=== PATIENT | female | born 1945 | race Caucasian/White ===

== ENCOUNTER 2025-03-12 20:35 | Inpatient (IN) | payer OTHER, SELFPAY ==
[2025-03-12] VITALS (8 sets, daily range): BP systolic 97–127; BP diastolic 61–89; BMI 32.9; BMI 32.5
[2025-03-12 11:57] LABS: Hematocrit 42.0 % (37.0-47.0); Hemoglobin 13.4 g/dL (12.0-16.0); Mean Corp Hgb Conc. 31.9 g/dL (33.0-37.0); Mean Corpuscular Volume 94.4 fL (81.0-99.0); Nucleated Red Blood Cells % 0 %; Platelet Count 240 10^3/uL (130-400); Red Cell Dist. Width 12.7 % (11.5-14.5)
[2025-03-12 12:19] LABS: ALT (SGPT) 23 U/L (0-35); AST (SGOT) 29 U/L (14-36); Albumin 4.7 g/dl (3.5-5.0); Alkaline Phosphatase 98 U/L (38-126); Blood Urea Nitrogen 18 mg/dl (7-17); Calcium 10.8 mg/dl (8.4-10.2); Carbon Dioxide 29 mmol/L (22-30); Chloride 102 mmol/L (98-107); Glucose 144 mg/dl (70-99); Lipase 73 U/L (23-300); Potassium 4.3 mmol/L (3.5-5.1); Sodium 139 mmol/L (135-145); Total Protein 7.4 g/dl (6.3-8.2); eGFR > 60.00
--- NOTE | 2025-03-12 13:47 | ED.GENMED ---
History of Present Illness
<Alpa Guzman MD - Last Filed: 03/12/25 15:29>
General
Chief Complaint: Abdominal Pain
Time Seen by Provider: 03/12/25 13:39
History of Present Illness
History of Present Illness:
Patient is a 80-year-old woman with history of colon cancer status post resection/chemotherapy currently in remission, hypertension, hyperlipidemia presenting to the emergency department with abdominal pain. Patient states she been having
intermittent abdominal pain. It is epigastric and sometimes periumbilical. It is associated with nausea. It is not exertional. She does not become diaphoretic. No urinary symptoms. No changes in her bowel movement. Her last colonoscopy was
last year. She has had normal PET scans this year. No chest pain. No difficulty breathing. No vomiting. She did talk to her surgeons who told her to come to the emergency department for further evaluation.
Phy Exam
<Alpa Guzman MD - Last Filed: 03/12/25 15:29>
Physical Exam
Physical Exam:
GENERAL: in no acute distress
HEENT: normocephalic, extraocular movements intact, moist oral mucosa
NECK: normal inspection
RESPIRATORY: no respiratory distress, clear to auscultation bilaterally
CARDIOVASCULAR: regular rate and rhythm
ABDOMEN/: soft, non-distended, periumbilical tenderness to palpation, no rebound or guarding
EXTREMITIES: non-tender, no edema/swelling
NEUROLOGIC: awake and alert, moves all extremities
SKIN: warm
Course
<Alpa Guzman MD - Last Filed: 03/12/25 15:29>
Orders/Labs/Results
Orders:
Orders
03/12/25 11:40
Complete Blood Count/With Diff Urgent
Comprehensive Metabolic Panel Urgent
Lipase Urgent
03/12/25 13:40
Electrocardiogram (*1) Urgent
Reason for Study: Abdominal Pain
CT Abd/pelvis W Iv Cont Urgent
Comment:
Reason For Exam: abd pain
EKG- Treatment ONCE
03/12/25 13:47
Famotidine [Pepcid] 40 mg PO NOW STA
Ondansetron Orally Disint [Zofran Odt (Orally Disintegrating)] 4 mg PO NOW STA
Abnormal Lab Results
03/12/25
11:40
MCHC 31.9 L g/dL
(33.0-37.0)
BUN 18 H mg/dl
(7-17)
Glucose 144 H mg/dl
(70-99)
Calcium 10.8 H mg/dl
(8.4-10.2)
03/12/25 11:40
03/12/25 11:40
Vital Signs
Initial and Last Documented VS:
Initial Vital Signs
Temp Pulse Resp BP Pulse Ox
98.2 F 79 16 127/79 98
03/12/25 11:28 03/12/25 11:28 03/12/25 11:28 03/12/25 11:28 03/12/25 11:28
Last Documented Vital Signs
Temp Pulse Resp BP Pulse Ox
98.2 F 80 22 121/66 96
03/12/25 11:28 03/12/25 17:00 03/12/25 17:00 03/12/25 17:00 03/12/25 16:30
<Weston Landis, DO - Last Filed: 03/12/25 18:27>
Orders/Labs/Results
Orders:
Orders
03/12/25 11:40
Complete Blood Count/With Diff Urgent
Comprehensive Metabolic Panel Urgent
Lipase Urgent
03/12/25 13:40
Electrocardiogram (*1) Urgent
Reason for Study: Abdominal Pain
CT Abd/pelvis W Iv Cont Urgent
Comment:
Reason For Exam: abd pain
EKG- Treatment ONCE
03/12/25 13:47
Famotidine [Pepcid] 40 mg PO NOW STA
Ondansetron Orally Disint [Zofran Odt (Orally Disintegrating)] 4 mg PO NOW STA
Abnormal Lab Results
03/12/25
11:40
MCHC 31.9 L g/dL
(33.0-37.0)
BUN 18 H mg/dl
(7-17)
Glucose 144 H mg/dl
(70-99)
Calcium 10.8 H mg/dl
(8.4-10.2)
03/12/25 11:40
03/12/25 11:40
Vital Signs
Initial and Last Documented VS:
Initial Vital Signs
Temp Pulse Resp BP Pulse Ox
98.2 F 79 16 127/79 98
03/12/25 11:28 03/12/25 11:28 03/12/25 11:28 03/12/25 11:28 03/12/25 11:28
Last Documented Vital Signs
Temp Pulse Resp BP Pulse Ox
98.2 F 80 22 121/66 96
03/12/25 11:28 03/12/25 17:00 03/12/25 17:00 03/12/25 17:00 03/12/25 16:30
<Alpa Guzman MD - Last Filed: 03/12/25 15:29>
MDM/Problems Addressed
Differential Diagnosis Includes:
Patient is a 80-year-old woman with history of colon cancer status post resection/chemotherapy, hiatal hernia presenting to the emergency department intermittent abdominal pain as well as nausea. On arrival vitals unremarkable exam does show
tenderness to palpation to the periumbilical region. Concern for new malignancy versus atypical ACS versus worsening hernia or reflux. Will check blood work EKG CT scan. Will give Zofran and Pepcid.
<Alpa Guzman MD - Last Filed: 03/12/25 15:29>
*Pulse Oximetry
SaO2: 98
Oxygen Mode of Delivery: Room air
<Weston Landis DO - Last Filed: 03/12/25 18:27>
*Pulse Oximetry
Patient hypoxic: no
*Critical Care Note
Total Time (30-74mins, 75-104mins- exclusive of procedures): Not Applicable
<Alpa Guzman MD - Last Filed: 03/12/25 15:29>
Update Note
Update Note:
EKG per my interpretation no obvious ST changes. Patient does feel much better after the Pepcid. We are pending CT scan at this time. Patient signed out pending CT scan results
<Weston Landis DO - Last Filed: 03/12/25 18:27>
Update Note
Update Note:
EKG per my interpretation no obvious ST changes. Patient does feel much better after the Pepcid. We are pending CT scan at this time. Patient signed out pending CT scan results
1823 pt received in s/o. CT shows suspicion for partial SBO. pain has returned. no vomiting. In light of her surgery history and her persistent symptoms will admit/obs. IV fluids ordered. Continue to monitor.
ED Attending Note
<Alpa Guzman MD - Last Filed: 03/12/25 15:29>
-
Portions of this chart may have been created with voice recognition software.� Occasional wrong word or��sound alike� substitutions may have occurred due to the inherent limitations of voice recognition software.
Discharge Plan
Departure
Patient Disposition: Admit
Date of Disposition: 03/12/25
Time of Disposition: 18:24
Admit to: Med/Surg
Presentation/result/management discussed w/ accepting MD/DO: Hospitalist
Discharge Problem:
Hiatal hernia, Acid reflux, Partial small bowel obstruction
Instructions: Acid Reflux and GERD in Adults (DC)
Referrals:
Mina Escalona CRNP [Family Provider, Family Practice]
Activity Restrictions/Additional Instructions:
You were seen in the Emergency Department today for abdominal pain. While you were here we performed blood work, which was reassuring. Please make sure you take Pepcid once a day to help with your symptoms.
We would like for you to follow up with your primary care physician for further evaluation. If you experience fever, worsening of your symptoms, or develop any other new or concerning symptoms, please return to the Emergency Department immediately.
Please see the attached sheet for additional information.
Interventions
Interventions:
*Risk Screen - Suicide Last Done: 03/12/25 11:28
*General Assessment Last Done: 03/12/25 11:28
*Neglect/Abuse Screening Last Done: 03/12/25 11:28
*ED COVID-19 Vaccine History Last Done: 03/12/25 14:12
*ED Influenza Vaccine History Last Done: 03/12/25 14:12
UO-Oyveqb-Lxinzazlzd Assessment Last Done: 03/12/25 17:16
Discharge Date and Time
Print Language: TAJIK
[2025-03-12] MEDS: ZOFRAN ODT (ORALLY DISINTEGRATING) 4 MG PO (13:56)
[2025-03-12] MEDS: PEPCID 40 MG PO (13:56)
[2025-03-12] MEDS: D5/0.45%NACL 500 IV (19:05)
--- NOTE | 2025-03-12 20:03 | HPS.HSE ---
Family Physician
-
Family Physician: LAKESHIA Fischer
Chief Complaint
-
Abdominal pain
History of Present Illness
80-year-old woman with history of:
colon cancer status post resection/chemotherapy currently in remission,
essential hypertension,
hyperlipidemia
presents to the emergency department with abdominal pain. She states she has been having intermittent abdominal pain, epigastric and sometimes periumbilical, associated with nausea, not exertional. She does not become diaphoretic. No urinary
symptoms. No changes in her bowel movement. Her last colonoscopy was last year. She has had normal PET scans this year. No chest pain. No difficulty breathing. No vomiting. She did talk to her surgeons who told her to come to the emergency
department for further evaluation. In the ER, the CT showed:
At least three possible foreign small low-attenuation hepatic lesions, difficult to differentiate malignancy such as metastatic disease versus benign etiology such as hemangiomas on the basis of this study.
Prior colonic surgery with anastomosis seen in the left anterior lower abdomen, presumably ileocolic anastomosis with foreshortening large and small bowel and mildly dilated small bowel with air-fluid levels SUGGESTING PARTIAL OBSTRUCTION, POSSIBLY
AT SITE OF ANASTOMOSIS. No findings to confirm intestinal pneumatosis.
Distal colonic diverticulosis.
Small volume ascites.
Small right renal cyst.
Large hiatal/diaphragmatic stomach with majority of stomach seen in the medial right lower chest.
Medical History
Past Medical History
Past Medical History: Reports Other
Additional Past Medical History:
colon cancer status post resection/chemotherapy currently in remission,
essential hypertension,
hyperlipidemia
GERD
Past Surgical History: Reports Other
Additional Past Surgical History:
See above
Social History
Tobacco: Non-smoker
Alcohol: None
Drug: None
Personal:
Living: With Family
Employment: Retired
Family History
Family History: Not pertinent
Allergies / Home Medications
Allergies reflects when Allergies were last updated in [facility].
Home Medications with original date entered in [facility]
Allergy/Medication List:
Allergies
Allergy/AdvReac Type Severity Reaction Status Date / Time
ibuprofen (From Advil) Allergy Hives Verified 03/12/25 11:34
Home Medications
Lactobac no.2-Bifidobac no.1-S. thermo 112.5 billion cell capsule (Visbiome) 1 cap PO DAILY Supplement 03/12/25
acetaminophen 325 mg tablet (Tylenol) 650 mg PO Q6HPRN PRN mild pain 03/12/25
apixaban 5 mg tablet (Eliquis) 5 mg PO BID Blood Clot Prevention/Tx 03/12/25
ascorbic acid (vitamin C) 500 mg tablet (Vitamin C) 500 mg PO DAILY Supplement 03/12/25
atorvastatin 20 mg tablet (Lipitor) 20 mg PO QPM gerd 03/12/25
cholecalciferol (vitamin D3) 25 mcg (1,000 unit) tablet (Vitamin D3) 25 mcg PO DAILY Supplement 03/12/25
cranberry fruit 450 mg tablet (cranberry) 450 mg PO DAILY Supplement 03/12/25
cyanocobalamin (vitamin B-12) 1,000 mcg tablet 1,000 mcg PO DAILY Supplement 03/12/25
digoxin 125 mcg (0.125 mg) tablet 125 mcg PO DAILY Heart Disease/Condition 03/12/25
furosemide 20 mg tablet (Lasix) 20 mg PO QPM Fluid Retention/Swelling 03/12/25
furosemide 40 mg tablet (Lasix) 40 mg PO DAILY Fluid Retention/Swelling 03/12/25
losartan 100 mg tablet 100 mg PO DAILY Heart Disease/Condition 03/12/25
melatonin 5 mg tablet 5 mg PO HSPRN PRN sleep 03/12/25
metoprolol succinate 25 mg tablet,extended release 24 hr (Toprol XL) 25 mg PO BID Heart Disease/Condition 03/12/25
pantoprazole 40 mg tablet,delayed release (Protonix) 40 mg PO DAILY gerd 03/12/25
polyethylene glycol 3350 17 gram oral powder packet (Miralax) 8.5 g PO DAILYPRN PRN constipation 03/12/25
Review of Systems
-
History Source: Patient
A 12 point ROS was completed and negative except as noted: Yes
Physical Exam
Vital Signs
Vital Signs
Temp Pulse Resp BP Pulse Ox
98.2 F 80 12 116/61 94
03/12/25 11:28 03/12/25 19:45 03/12/25 19:45 03/12/25 19:01 03/12/25 19:45
Physical Exam
General: Well Developed, Well Nourished, No Apparent Distress, Comfortable, Conversant and Obese
HEENT: NormoCephalic, Nose Appears Normal and Ears Appear Normal
Respiratory: Clear
Cardiac: S1/S2, Regular Rhythm and Murmur
GI: Soft, Non Tender and Non Distended
Musculoskeletal: No Clubbing, No Cyanosis, Edema, Left Lower Extremity and Edema, Right Lower Extremity
Skin: Warm and Dry
Neuro: Awake, Alert, Oriented and AO x 3
Psych: Calm
Laboratory Results
-
03/12/25 11:40
03/12/25 11:40
Laboratory Results
Total Bilirubin 0.8 mg/dl (0.2-1.3) 03/12/25 11:40
AST 29 U/L (14-36) 03/12/25 11:40
ALT 23 U/L (0-35) 03/12/25 11:40
Alkaline Phosphatase 98 U/L (38-126) 03/12/25 11:40
Lipase 73 U/L (23-300) 03/12/25 11:40
Data Reviewed
-
Lab Data: Labs Reviewed by me
Impression/Plan
-
IMPRESSION:
80 woman with partial SBO, stable vitals, stable labs.
PLAN:
1. Partial SBO in setting of complex anatomy given prior surgery
NPO
IV saline
If symptoms do not resolve within 24-48 hours, surgical consult for further advice
2. Complex findings on CT
Outpatient follow up to go over imaging
Full code
VCD for DVTp
--- NOTE | 2025-03-12 22:50 | PTCARENOTE ---
Pt arrived to south @ 2250 from ED. Pt ambulated to bed w/o difficulty. Pt AOx3, VSS. Admission assessment complete. IVF initiated per order. Pt oriented to room, call beíntez within reach, bed locked and in lowest position. Care ongoing.
[2025-03-12] MEDS: NSS 1000 IV (23:24)
[2025-03-13 07:00] VITALS: BP 102/60
[2025-03-13 07:19] LABS: Hematocrit 37.0 % (37.0-47.0); Hemoglobin 11.7 g/dL (12.0-16.0); Mean Corp Hgb Conc. 31.6 g/dL (33.0-37.0); Mean Corpuscular Volume 95.6 fL (81.0-99.0); Platelet Count 182 10^3/uL (130-400); Red Cell Dist. Width 12.8 % (11.5-14.5)
[2025-03-13 07:32] LABS: Blood Urea Nitrogen 14 mg/dl (7-17); Calcium 10.0 mg/dl (8.4-10.2); Carbon Dioxide 27 mmol/L (22-30); Chloride 105 mmol/L (98-107); Estimated Creatinine Clearance 67 ml/min; Glucose 108 mg/dl (70-99); Potassium 3.9 mmol/L (3.5-5.1); Sodium 135 mmol/L (135-145); eGFR > 60.00
[2025-03-13] MEDS: NSS (PRESERVATIVE FREE) 10 ML IV (08:42)
[2025-03-13] MEDS: PROTONIX IV 40 MG IV (08:43)
--- NOTE | 2025-03-13 08:52 | W.PN.HOSP.TC ---
Today's Communication/Plan
-
Heparin Drip in lieu of Eliquis
Since patient normally takes Digoxin for A-Fib, monitor patient on telemetry given the circumstances
See plan
Assessment / Plan
Assessment / Plan
Physical Exam
General: Not in acute distress
HEENT: Normocephalic
Respiratory: Clear to Auscultation Bilaterally
Cardiac: S1/S2, Regular Rhythm and Murmur
GI: Soft, Non Tender and Non Distended. Positive bowel sounds.
Musculoskeletal: No Cyanosis, Edema, Left Lower Extremity and Edema, Right Lower Extremity
Skin: Warm and Dry
Neuro: Awake, Alert, Oriented and AO x 3
Psych: Calm
Assessment/Plan
80-year-old woman with history of:
colon cancer status post resection/chemotherapy currently in remission,
essential hypertension,
hyperlipidemia
presented to the emergency department with abdominal pain. She stated that she had been having intermittent abdominal pain, epigastric and sometimes periumbilical, associated with nausea, not exertional or associated with diaphoresis. She denied
having any urinary symptoms or any changes in her bowel movement. Her last colonoscopy was in 2023, according to her. She has had normal PET scans this year. She denied any chest pain or difficulty breathing. She denied any vomiting. She did talk to
her surgeons who told her to come to the emergency department for further evaluation. In the ER, the CT Abdomen/Pelvis showed (as per radiologist's report):
At least three possible foreign small low-attenuation hepatic lesions, difficult to differentiate malignancy such as metastatic disease versus benign etiology such as hemangiomas on the basis of this study. Are there prior outside studies for
comparison?
Prior colonic surgery with anastomosis seen in the left anterior lower abdomen, presumably ileocolic anastomosis with foreshortening large and small bowel and mildly dilated small bowel with air-fluid levels SUGGESTING PARTIAL OBSTRUCTION, POSSIBLY
AT SITE OF ANASTOMOSIS. No findings to confirm intestinal pneumatosis.
Distal colonic diverticulosis.
Small volume ascites.
Small right renal cyst.
Large hiatal/diaphragmatic stomach with majority of stomach seen in the medial right lower chest.
ADDENDED REPORT:
Following further reformatted views of the study just completed, small bowel obstruction may be multifocal and most prominent at the level of the right true pelvis coronal images 24-26, series 202.
#Partial SBO in setting of complex anatomy given prior surgery in setting of colon cancer
NPO except sips of clears and ice chips for now
IV fluids were given
Consulted general surgery
#Hepatic Lesions on CT
#History of colon cancer
-Oncology evaluation inpatient vs. outpatient
#Atrial Fibrillation
-Start Heparin Drip, to be given in lieu of patient's Eliquis for stroke prevention
-Have asked pharmacist to look into converting her home medications to intravenous especially the Digoxin
-Monitor on telemetry
#Bilateral Lower Extremity Edema
-Patient takes Lasix at home -- hold here due to soft blood pressures
-Patient denied having any history of CHF
Full code
Heparin Drip for DVT prophylaxis
Anticipated Discharge: 24 - 48 hours
Subjective/Interval History
-
Date of Service: March 13, 2025
Patient was seen and examined. She reported that her abdominal pain was better but still there. She denied nausea or vomiting.
Objective Data
-
Labs:
Laboratory Results
03/13/25
06:40
WBC 5.8
Hgb 11.7 L
Hct 37.0
Plt Count 182 D
Sodium 135
Potassium 3.9
Chloride 105
Carbon Dioxide 27
BUN 14
Creatinine 0.7
Glucose 108 H
Calcium 10.0
Vital Signs:
Vital Signs
Temp Pulse Resp BP Pulse Ox
98.5 F 96 16 102/60 95
03/13/25 07:00 03/13/25 07:00 03/13/25 07:00 03/13/25 07:00 03/13/25 07:00
I&O
03/12/25 03/13/25 03/14/25
06:59 06:59 05:59
Intake Total 600 / 600
Balance 600 / 600
[2025-03-13] MEDS: LASIX IV (08:58)
[2025-03-13] MEDS: NSS 1000 IV (13:28)
--- NOTE | 2025-03-13 14:52 | CON.GS ---
Addendum entered and electronically signed by Sage Rodarte MD 03/13/25 15:28:
Patient is a 80 yo F with a PMH of GERD, HTN, HLD, A-fib (on Eliquis, LD 03/12), s/p open cholecystectomy, and colon cancer s/p robotic RIGHT hemicolectomy at [facility] c/b leak s/p exploratory laparotomy with resection at [facility] in the
winter 2023. She completed adjuvant chemo therapy approximately 1 year ago. She denies any issues with significant abdominal pain or discomfort over the past year. She denies any prior bowel obstructions or admissions for bowel obstructions over
the past year. Her current symptoms started approximately 1 month ago as a sharp pain in her epigastrium and mid abdomen. This episode was brief lasting hours before self resolving. Over the past 2 weeks she reports having 2-3 similar episodes.
Her most recent episode began 24 to 48 hours ago. Associated nausea and vomiting. She last passed flatus today. She had 3 bowel movements yesterday after taking some MiraLAX. She does report eating some sausage and peppers prior to the onset of
her symptoms. Currently she states that her pain is mildly improved. She denies any nausea. No fevers or chills.
Of note, she has been found to have several small 2 to 3 mm lung nodules concerning for possible metastatic disease. She has also had a slight elevation in her CEA with most recent reading of 4.9. She follows with [facility]. Her most
recent and current CT scan here at demonstrates 3 small hepatic lesions. Her most recent colonoscopy was in 2023, with plans for a repeat colonoscopy in February 2026.
Gen: NAD
Abd: soft, mild tenderness in epigastrium, obese, mild distension, non-peritoneal, prior incisions well healed
Labs and CT scan imaging were reviewed.
Patient is an 80 yo F p/w partial SBO likely secondary to adhesions, possibly due to malignancy.
The natural history and pathophysiology of bowel obstructions was reviewed. CT scan imaging demonstrates a likely transition point within the RIGHT pelvis. No evidence of pneumatosis or free air. Some signs of early resolution with passage of
flatus and loose bowel movements over the past 24 hours. No clear evidence of a mass causing an obstruction. He does have some signs of metastatic disease with hepatic and pulmonary lesions as well as a rising CEA, although this has yet to be
definitively determined with tissue biopsy. No indication for urgent or emergent surgical intervention at this time. Options for management including medical management with bowel rest versus surgical exploration and management were considered and
discussed. The pros and cons of both approaches was discussed. Recommend medical management at this time. All questions answered.
-- NPO, IVF
-- Clears versus contrast imaging tomorrow pending clinical improvement
-- OOB/ambulate, correct lytes, minimize narcotics
Original Note:
Consultation
-
Date/Time Consultation Performed: 03/13/25 1430
Medical History
-
Chief Complaint: abdominal pain
History of Present Illness:
Ms Guadarrama is an 80 yo female with a h/o open cholecystectomy, colon cancer s/p robotic right colectomy 01/2023 at [facility] ([facility]) with complicated course requiring IR drains for abscess and subsequent open surgery with revision of
anastomosis at [facility] ([facility]) winter completed chemo February 2024 with colonoscopy around that time, following at [facility] for surveillance who presents with intermittent sharp abdominal pain for the past month with recent worsening. She notes
she had the first episode of this about one month ago with sharp pain just below the umbilicus with associated nausea awakening her from sleep with resolution after several hours. This happened a few more times over the past few weeks. She notes
some difficulty passing stools this past week and took Miralax with BM x3 yesterday. She has passed flatus x1 today. She notes that over the last day or so, the pain has become much more frequent. Yesterday, she had associated nausea with vomiting
as well as belching causing her to present for evaluation. She denies fevers or chills. She denies active nausea.
Past Medical History
Past Medical History: Cancer (colon ca s/p resection then chemo, last chemo was 1 year ago. currently under surveillance with CEA's trending up and repeat CT planned in April for eval of possible lung mets (no biospy yet)), GERD and
Hypercholesterolemia
Past Surgical History: Bowel Resection (robotic right colectomy 01/2023 at [facility] with complicated course requiring IR drains for abscess with subsequent open surgery with revision of anastomosis at [facility] ([facility]) winter) and
Cholecystectomy (open carol 1974)
Social History
Tobacco: Non-Smoker
Alcohol: None
Personal:
Living: With Family
Family History
Family History: Reviewed & Not Pertinent
Allergies / Home Medications
Allergy/AdvReac Type Severity Reaction Status Date / Time
ibuprofen (From Advil) Allergy Hives Verified 03/12/25 11:34
�Medication �Instructions �Recorded �Confirmed �Type
Lactobac no.2-Bifidobac no.1-S. 1 cap PO DAILY Supplement 03/12/25 03/12/25 History
thermo 112.5 billion cell capsule
(Visbiome)
acetaminophen 325 mg tablet 650 mg PO Q6HPRN PRN mild pain 03/12/25 03/12/25 History
(Tylenol)
apixaban 5 mg tablet (Eliquis) 5 mg PO BID Blood Clot 03/12/25 03/12/25 History
Prevention/Tx
ascorbic acid (vitamin C) 500 mg 500 mg PO DAILY Supplement 03/12/25 03/12/25 History
tablet (Vitamin C)
atorvastatin 20 mg tablet (Lipitor) 20 mg PO QPM gerd 03/12/25 03/12/25 History
cholecalciferol (vitamin D3) 25 25 mcg PO DAILY Supplement 03/12/25 03/12/25 History
mcg (1,000 unit) tablet (Vitamin
D3)
cranberry fruit 450 mg tablet 450 mg PO DAILY Supplement 03/12/25 03/12/25 History
(cranberry)
cyanocobalamin (vitamin B-12) 1,000 mcg PO DAILY Supplement 03/12/25 03/12/25 History
1,000 mcg tablet
digoxin 125 mcg (0.125 mg) tablet 125 mcg PO DAILY Heart 03/12/25 03/12/25 History
Disease/Condition
furosemide 20 mg tablet (Lasix) 20 mg PO QPM Fluid 03/12/25 03/12/25 History
Retention/Swelling
furosemide 40 mg tablet (Lasix) 40 mg PO DAILY Fluid 03/12/25 03/12/25 History
Retention/Swelling
losartan 100 mg tablet 100 mg PO DAILY Heart 03/12/25 03/12/25 History
Disease/Condition
melatonin 5 mg tablet 5 mg PO HSPRN PRN sleep 03/12/25 03/12/25 History
metoprolol succinate 25 mg 25 mg PO BID Heart 03/12/25 03/12/25 History
tablet,extended release 24 hr Disease/Condition
(Toprol XL)
pantoprazole 40 mg tablet,delayed 40 mg PO DAILY gerd 03/12/25 03/12/25 History
release (Protonix)
polyethylene glycol 3350 17 gram 8.5 g PO DAILYPRN PRN constipation 03/12/25 03/12/25 History
oral powder packet (Miralax)
Review of Systems
-
History Source: Patient
All other systems: Negative unless noted
A 10 point review of systems was completed, and was negative except as per HPI.
Physical Exam
Vital Signs
Temp Pulse Resp BP Pulse Ox
98.5 F 96 16 102/60 95
03/13/25 07:00 03/13/25 07:00 03/13/25 07:00 03/13/25 07:00 03/13/25 07:00
03/12/25 03/13/25 03/14/25
06:59 06:59 05:59
Actual Weight 85.814 kg
Body Mass Index (BMI) 32.5
Lab Results
03/13/25 06:40
WBC 5.8 10^3/uL (4.8-10.8) 03/13/25 06:40
Hgb 11.7 g/dL (12.0-16.0) L 03/13/25 06:40
Hct 37.0 % (37.0-47.0) 03/13/25 06:40
Plt Count 182 10^3/uL (130-400) D 03/13/25 06:40
Abs Immat Gran (auto) 0.0 10^3/uL (0-0.05) 03/12/25 11:40
Neutrophils % 70.4 % (42.2-75.2) 03/12/25 11:40
Physical Exam
General: Well Developed and Well Nourished
HEENT: Moist Mucous Membranes
GI: Soft, Tender (mild just below umbilicus) and Distended (mild)
Skin: Warm and Dry
Neuro: Awake, Alert and AO x 3
Psych: Calm
Data Reviewed
-
CT Scan: Image Personally Visualized and interpreted, Report Reviewed by me, Discussed with Physician and Discussed with Patient
Labs: Labs Reviewed by me, Discussed with Physician and Discussed with Patient
Old Records: Reviewed
Assessment / Plan
-
Ms Guadarrama is an 80 yo female with a h/o open cholecystectomy, colon cancer s/p robotic right colectomy 01/2023 at [facility] ([facility]) with complicated course requiring IR drains for abscess and subsequent open surgery with revision of
anastomosis at [facility] ([facility]) winter completed chemo February 2024 with colonoscopy around that time, following at [facility] for surveillance who presents with intermittent sharp abdominal pain for the past month with recent worsening. N/V since
yesterday with more frequent episodes of sharp periumbilical pain. Ct imaging with IV but no PO contrast was reviewed with findings consistent with partial bowel obstruction in the pelvic area. Suspect secondary to adhesions. Small hepatic lesions
present as well. Pt notes recent rise in CEA to 4.9 as an outpatient with some lung lesions on recent PET as well. Outpatient follow up CT and biopsy discussions are ongoing with her primary oncology team. She is afebrile, VSS. No leukocytosis.
Renal function normal.
Plan:
Would keep NPO for bowel rest. No need for NGT unless begins actively vomiting.
IVF as per primary team
May require PO contrast study if not improving
Will follow for improvement with nonoperative measures at this time
[2025-03-13 15:11] LABS: Hematocrit 37.7 % (37.0-47.0); Hemoglobin 12.1 g/dL (12.0-16.0); Mean Corp Hgb Conc. 32.1 g/dL (33.0-37.0); Mean Corpuscular Volume 93.1 fL (81.0-99.0); Platelet Count 190 10^3/uL (130-400); Red Cell Dist. Width 12.6 % (11.5-14.5)
[2025-03-13 15:22] LABS: APTT 32.1 Sec (23.4-35.0)
[2025-03-13] MEDS: HEPARIN 25000 UNITS/250 ML IV (15:38)
[2025-03-13 15:57] VITALS: BP 133/65
[2025-03-13] MEDS: LASIX 20 MG IV (16:02)
--- NOTE | 2025-03-13 16:03 | CM ---
I.A: Completed By AVIS Patel.
Patient lives with her in a [address] home ([address]), uses a rolling walker, had [facility] in the past, No inpatient rehab.
PCP: Dr. Mina Escalona
Pharmacy: [facility]/ [facility]
Patient has transportation home when ready. PLAN: Anticipate Home No Needs.
[2025-03-13] MEDS: LANOXIN 100 MCG IV (17:00)
[2025-03-13] MEDS: LOPRESSOR 2.5 MG IV (17:03)
[2025-03-13 19:10] VITALS: BP 129/68
[2025-03-13] MEDS: OFIRMEV 100 IV (20:00)
[2025-03-13 22:55] LABS: APTT 65.5 Sec (23.4-35.0)
[2025-03-13 23:00] VITALS: BP 116/79
[2025-03-14] MEDS: LOPRESSOR 2.5 MG IV ×5 (00:49→23:51)
[2025-03-14] MEDS: NSS 1000 IV ×2 (02:19→16:20)
[2025-03-14 04:00] VITALS: BP 140/64
[2025-03-14 04:33] LABS: APTT 113.5 Sec (23.4-35.0)
[2025-03-14 06:26] LABS: Hematocrit 34.4 % (37.0-47.0); Hemoglobin 11.1 g/dL (12.0-16.0); Mean Corp Hgb Conc. 32.3 g/dL (33.0-37.0); Mean Corpuscular Volume 92.7 fL (81.0-99.0); Platelet Count 177 10^3/uL (130-400); Red Cell Dist. Width 12.5 % (11.5-14.5)
[2025-03-14 06:52] LABS: Blood Urea Nitrogen 15 mg/dl (7-17); Calcium 9.6 mg/dl (8.4-10.2); Carbon Dioxide 26 mmol/L (22-30); Chloride 108 mmol/L (98-107); Estimated Creatinine Clearance 67 ml/min; Glucose 67 mg/dl (70-99); Magnesium 1.7 mg/dl (1.6-2.3); Potassium 3.9 mmol/L (3.5-5.1); Sodium 141 mmol/L (135-145); eGFR > 60.00
[2025-03-14 07:00] VITALS: BP 107/66
--- NOTE | 2025-03-14 07:50 | W.PN.HOSP.TC ---
Today's Communication/Plan
-
Diet advanced
Continue Heparin Drip
See plan
Assessment / Plan
Assessment / Plan
Physical Exam
General: Not in acute distress
HEENT: Normocephalic
Respiratory: Clear to Auscultation Bilaterally
Cardiac: S1/S2, Regular Rhythm and Murmur
GI: Soft, Non Tender and Non Distended. Positive bowel sounds.
Musculoskeletal: No Cyanosis, Edema, Left Lower Extremity and Edema, Right Lower Extremity
Skin: Warm and Dry
Neuro: Awake, Alert, Oriented and AO x 3
Psych: Calm
Assessment/Plan
80-year-old woman with history of:
colon cancer status post resection/chemotherapy currently in remission,
essential hypertension,
hyperlipidemia
presented to the emergency department with abdominal pain. She stated that she had been having intermittent abdominal pain, epigastric and sometimes periumbilical, associated with nausea, not exertional or associated with diaphoresis. She denied
having any urinary symptoms or any changes in her bowel movement. Her last colonoscopy was in 2023, according to her. She has had normal PET scans this year. She denied any chest pain or difficulty breathing. She denied any vomiting. She did talk to
her surgeons who told her to come to the emergency department for further evaluation. In the ER, the CT Abdomen/Pelvis showed (as per radiologist's report):
At least three possible foreign small low-attenuation hepatic lesions, difficult to differentiate malignancy such as metastatic disease versus benign etiology such as hemangiomas on the basis of this study. Are there prior outside studies for
comparison?
Prior colonic surgery with anastomosis seen in the left anterior lower abdomen, presumably ileocolic anastomosis with foreshortening large and small bowel and mildly dilated small bowel with air-fluid levels SUGGESTING PARTIAL OBSTRUCTION, POSSIBLY
AT SITE OF ANASTOMOSIS. No findings to confirm intestinal pneumatosis.
Distal colonic diverticulosis.
Small volume ascites.
Small right renal cyst.
Large hiatal/diaphragmatic stomach with majority of stomach seen in the medial right lower chest.
ADDENDED REPORT:
Following further reformatted views of the study just completed, small bowel obstruction may be multifocal and most prominent at the level of the right true pelvis coronal images 24-, series 202.
#Partial SBO in setting of complex anatomy given prior surgery in setting of colon cancer
Diet advanced to clear liquids diet today
IV fluids were given
Consulted general surgery
#Hepatic Lesions on CT
#History of colon cancer
-Oncology evaluation inpatient vs. outpatient
#Atrial Fibrillation
-Started Heparin Drip on 03/13/25, to be given in lieu of patient's Eliquis for stroke prevention --> once patient has evidence of reliable oral intake, will switch back to oral anticoagulation
-Have asked pharmacist to look into converting her home medications to intravenous especially the Digoxin --> Digoxin converted to IV
-Monitor on telemetry
#Bilateral Lower Extremity Edema
-Patient takes Lasix at home -- hold here due to soft blood pressures
-Patient denied having any history of CHF
Full code
Heparin Drip for DVT prophylaxis
Anticipated Discharge: 24 - 48 hours
Subjective/Interval History
-
Date of Service: March 14, 2025
Patient was seen and examined. She reported feeling better and denied any new significant symptoms or complaints.
Objective Data
-
Labs:
Laboratory Results
03/13/25 03/14/25 03/14/25
22:38 04:09 05:23
WBC 5.1
Hgb 11.1 L
Hct 34.4 L
Plt Count 177
APTT 65.5 H 113.5 H
Sodium 141
Potassium 3.9
Chloride 108 H
Carbon Dioxide 26
BUN 15
Creatinine 0.7
Glucose 67 L
Calcium 9.6
03/14/25
11:00
WBC
Hgb
Hct
Plt Count
APTT Pending
Sodium
Potassium
Chloride
Carbon Dioxide
BUN
Creatinine
Glucose
Calcium
Vital Signs:
Vital Signs
Temp Pulse Resp BP Pulse Ox
98.6 F 68 15 136/68 93
03/14/25 04:00 03/14/25 05:23 03/14/25 04:00 03/14/25 05:23 03/14/25 04:00
I&O
03/13/25 03/14/25 03/15/25
06:59 05:59 06:59
Intake Total 600 / 600 1985
Balance 600 / 600 1985
[2025-03-14] MEDS: NSS (PRESERVATIVE FREE) 10 ML IV (07:55)
[2025-03-14] MEDS: PROTONIX IV 40 MG IV (07:56)
[2025-03-14] MEDS: LANOXIN 100 MCG IV (07:56)
[2025-03-14] MEDS: LASIX IV (07:57)
[2025-03-14] MEDS: OFIRMEV 100 IV (09:06)
--- NOTE | 2025-03-14 09:31 | W.PN.GS2 ---
Today's Communication / Plan
-
-- Clears
Assessment / Plan
-
Patient is an 80 yo F p/w pSBO likely related to adhesions
AVSS
Labs notable for normal WBC, normal electrolytes and renal function
Clinical improvement. Plan for trial of clears.
-- Clears
-- Pain control: Tylenol and Toradol
-- OOB/ambulate
-- Correct lytes minimize narcotics
Subjective Data
-
Date of Service: March 14, 2025
Feels improved. No nausea or vomiting. Passing flatus and loose stools. Ambulating. Voiding.
Objective Data
-
Intake and Output
03/13/25 03/14/25 03/15/25
06:59 05:59 06:59
Intake Total 600 / 600 1985
Balance 600 / 600 1985
Intake:
Oral fluids 960 / 960
IV fluids (Total) 600 / 600 900 / 900
IV piggybacks 126 / 126
Other:
Number of approximated SMALL 1
amounts of urine
Number of approximated MODERATE 2
amounts of urine
Number of approximated LARGE 1
amounts of urine
Number of unmeasured liquid
stools
Rectum 1
Vital Signs
Temp Pulse Resp BP Pulse Ox
97.6 F 78 12 107/66 96
03/14/25 07:00 03/14/25 07:57 03/14/25 07:00 03/14/25 07:57 03/14/25 07:00
Lab Results
03/14/25 05:23
03/14/25 05:23
Calcium 9.6 mg/dl (8.4-10.2) 03/14/25 05:23
Magnesium 1.7 mg/dl (1.6-2.3) 03/14/25 05:23
Total Bilirubin 0.8 mg/dl (0.2-1.3) 03/12/25 11:40
AST 29 U/L (14-36) 03/12/25 11:40
ALT 23 U/L (0-35) 03/12/25 11:40
Alkaline Phosphatase 98 U/L (38-126) 03/12/25 11:40
Total Protein 7.4 g/dl (6.3-8.2) 03/12/25 11:40
Albumin 4.7 g/dl (3.5-5.0) 03/12/25 11:40
Physical Exam
-
Gen: NAD
Abd: soft, NT, mild distension (obese), non-peritoneal
Patient has a narvaez catheter: No
Patient has a central line: No
[2025-03-14 11:00] VITALS: BP 125/67
[2025-03-14 11:20] LABS: APTT 67.2 Sec (23.4-35.0)
[2025-03-14 15:00] VITALS: BP 124/64
[2025-03-14] MEDS: LASIX 20 MG IV (15:39)
[2025-03-14] MEDS: HEPARIN 25000 UNITS/250 ML IV (18:03)
[2025-03-14 18:21] LABS: APTT > 200 Sec (23.4-35.0)
[2025-03-14 19:00] VITALS: BP 114/57
[2025-03-14 23:00] VITALS: BP 114/54
[2025-03-15 03:06] LABS: APTT 71.0 Sec (23.4-35.0)
[2025-03-15 03:16] VITALS: BP 131/70
[2025-03-15] MEDS: LOPRESSOR 2.5 MG IV (05:35)
[2025-03-15] MEDS: NSS 1000 IV (05:52)
[2025-03-15 07:05] VITALS: BP 132/67
[2025-03-15 08:35] LABS: Hematocrit 35.9 % (37.0-47.0); Hemoglobin 11.7 g/dL (12.0-16.0); Mean Corp Hgb Conc. 32.6 g/dL (33.0-37.0); Mean Corpuscular Volume 90.2 fL (81.0-99.0); Platelet Count 187 10^3/uL (130-400); Red Cell Dist. Width 12.4 % (11.5-14.5)
[2025-03-15 08:45] LABS: APTT 78.8 Sec (23.4-35.0)
--- NOTE | 2025-03-15 08:56 | W.PN.GS2 ---
Today's Communication / Plan
-
Advance diet
Assessment / Plan
-
Patient is an 80 yo F p/w pSBO likely related to adhesions
AVSS
Labs notable for normal WBC, normal electrolytes and renal function
Clinical improvement. Tolerating FLD
-- Advance to low residue diet
-- Once tolerating LRD, ok to resume PO AC
-- Pain control: Tylenol and Toradol
-- OOB/ambulate
Subjective Data
-
Date of Service: March 15, 2025
Pt seen and examined at bedside with Dr. Philip. Mclean n/v. Tolerating full liquids. Passing flatus. 4 episodes of diarrhea yesterday afternoon.
Objective Data
-
Intake and Output
03/14/25 03/15/25 03/16/25
05:59 06:59 06:59
Intake Total 1985
Balance 1985
Intake:
Oral fluids 960 / 960 960 / 960
IV fluids (Total) 900 / 900 900 / 900
IV piggybacks 126 / 126 103 / 103
Other:
Number of approximated SMALL 1
amounts of urine
Number of approximated MODERATE 2 3
amounts of urine
Number of unmeasured liquid
stools
Rectum 1
Vital Signs
Temp Pulse Resp BP Pulse Ox
98 F 72 16 132/67 97
03/15/25 07:05 03/15/25 07:05 03/15/25 07:05 03/15/25 07:05 03/15/25 07:05
Lab Results
03/15/25 08:23
Calcium 9.6 mg/dl (8.4-10.2) 03/14/25 05:23
Magnesium 1.7 mg/dl (1.6-2.3) 03/14/25 05:23
Total Bilirubin 0.8 mg/dl (0.2-1.3) 03/12/25 11:40
AST 29 U/L (14-36) 03/12/25 11:40
ALT 23 U/L (0-35) 03/12/25 11:40
Alkaline Phosphatase 98 U/L (38-126) 03/12/25 11:40
Total Protein 7.4 g/dl (6.3-8.2) 03/12/25 11:40
Albumin 4.7 g/dl (3.5-5.0) 03/12/25 11:40
Physical Exam
-
Gen: NAD
Abd: soft, NT, ND, non-peritoneal
Patient has a narvaez catheter: No
Patient has a central line: No
[2025-03-15 09:14] LABS: Blood Urea Nitrogen 12 mg/dl (7-17); Calcium 10.0 mg/dl (8.4-10.2); Carbon Dioxide 23 mmol/L (22-30); Chloride 107 mmol/L (98-107); Estimated Creatinine Clearance 67 ml/min; Glucose 118 mg/dl (70-99); Potassium 3.7 mmol/L (3.5-5.1); Sodium 136 mmol/L (135-145); eGFR > 60.00
[2025-03-15] MEDS: LANOXIN 100 MCG IV (09:43)
[2025-03-15] MEDS: NSS (PRESERVATIVE FREE) 10 ML IV (09:45)
[2025-03-15] MEDS: PROTONIX IV 40 MG IV (09:45)
[2025-03-15] MEDS: LASIX 20 MG IV ×2 (09:46→16:55)
[2025-03-15 11:10] VITALS: BP 134/71
--- NOTE | 2025-03-15 12:01 | W.PN.HOSP.TC ---
Today's Communication/Plan
-
Tolerating Low Residue Diet
Patient insisted multiple times that she feels she is not ready to leave yet, she does not want to leave, and wants to be monitored overnight as low residue diet started today
Assessment / Plan
Assessment / Plan
Physical Exam
General: Not in acute distress
HEENT: Normocephalic
Respiratory: Clear to Auscultation Bilaterally
Cardiac: S1/S2, Regular Rhythm and Murmur
GI: Soft, Non Tender and Non Distended. Positive bowel sounds.
Musculoskeletal: No Cyanosis, Edema, Left Lower Extremity and Edema, Right Lower Extremity
Skin: Warm and Dry
Neuro: Awake, Alert, Oriented and AO x 3
Psych: Calm
Assessment/Plan
80-year-old woman with history of:
colon cancer status post resection/chemotherapy currently in remission,
essential hypertension,
hyperlipidemia
presented to the emergency department with abdominal pain. She stated that she had been having intermittent abdominal pain, epigastric and sometimes periumbilical, associated with nausea, not exertional or associated with diaphoresis. She denied
having any urinary symptoms or any changes in her bowel movement. Her last colonoscopy was in 2023, according to her. She has had normal PET scans this year. She denied any chest pain or difficulty breathing. She denied any vomiting. She did talk to
her surgeons who told her to come to the emergency department for further evaluation. In the ER, the CT Abdomen/Pelvis showed (as per radiologist's report):
At least three possible foreign small low-attenuation hepatic lesions, difficult to differentiate malignancy such as metastatic disease versus benign etiology such as hemangiomas on the basis of this study. Are there prior outside studies for
comparison?
Prior colonic surgery with anastomosis seen in the left anterior lower abdomen, presumably ileocolic anastomosis with foreshortening large and small bowel and mildly dilated small bowel with air-fluid levels SUGGESTING PARTIAL OBSTRUCTION, POSSIBLY
AT SITE OF ANASTOMOSIS. No findings to confirm intestinal pneumatosis.
Distal colonic diverticulosis.
Small volume ascites.
Small right renal cyst.
Large hiatal/diaphragmatic stomach with majority of stomach seen in the medial right lower chest.
ADDENDED REPORT:
Following further reformatted views of the study just completed, small bowel obstruction may be multifocal and most prominent at the level of the right true pelvis coronal images 24-26, series 202.
#Partial SBO in setting of complex anatomy given prior surgery in setting of colon cancer
Diet advanced to Low Residue diet today
IV fluids were given
Consulted general surgery
#Hepatic Lesions on CT
#History of colon cancer
-Oncology evaluation inpatient vs. outpatient
#Atrial Fibrillation
-Started Heparin Drip on 03/13/25, to be given in lieu of patient's Eliquis for stroke prevention --> once patient has evidence of reliable oral intake, will switch back to oral anticoagulation
-Have asked pharmacist to look into converting her home medications to intravenous especially the Digoxin --> Digoxin converted to IV
-Will transition back to oral medications today given patient is tolerating low residue diet
-Monitor on telemetry
#Bilateral Lower Extremity Edema
-Patient takes Lasix at home -- hold here due to soft blood pressures
-Patient denied having any history of CHF
Full code
Heparin Drip for DVT prophylaxis
Anticipated Discharge: Within 24 hours
Subjective/Interval History
-
Date of Service: March 15, 2025
Patient was seen and examined. She reported being able to tolerate oral intake.
Objective Data
-
Labs:
Laboratory Results
03/15/25 03/15/25 03/15/25
08:23 14:30 Unknown
WBC 5.3
Hgb 11.7 L
Hct 35.9 L
Plt Count 187
APTT 78.8 H Pending 71.0 H
Sodium 136
Potassium 3.7
Chloride 107
Carbon Dioxide 23
BUN 12
Creatinine 0.7
Glucose 118 H
Calcium 10.0
Vital Signs:
Vital Signs
Temp Pulse Resp BP Pulse Ox
98.1 F 68 16 134/71 97
03/15/25 11:10 03/15/25 11:10 03/15/25 11:10 03/15/25 11:10 03/15/25 11:10
I&O
03/14/25 03/15/25 03/16/25
05:59 06:59 06:59
Intake Total 1985 480 / 480
Balance 1985 480 / 480
[2025-03-15] MEDS: TOPROL XL 25 MG PO ×2 (12:44→20:03)
[2025-03-15] MEDS: COZAAR 100 MG PO (12:45)
[2025-03-15] MEDS: LOPRESSOR IV (12:59)
[2025-03-15 14:49] LABS: APTT 84.9 Sec (23.4-35.0)
[2025-03-15 15:10] VITALS: BP 129/74
[2025-03-15] MEDS: LIPITOR 20 MG PO (16:58)
--- NOTE | 2025-03-15 17:27 | CM ---
Patient seen at bedside on . Patient home with no needs at this time. CM will continue to follow for discharge planning needs.
Plan; home with no needs anticipated
[2025-03-15 19:00] VITALS: BP 116/66
[2025-03-15] MEDS: ELIQUIS 5 MG PO (20:03)
[2025-03-15 23:00] VITALS: BP 125/67
[2025-03-16 03:00] VITALS: BP 118/58
--- NOTE | 2025-03-16 07:33 | W.PN.HOSP.TC ---
Today's Communication/Plan
-
Discharge today
Assessment / Plan
Assessment / Plan
Physical Exam
General: Not in acute distress
HEENT: Normocephalic
Respiratory: Clear to Auscultation Bilaterally
Cardiac: S1/S2, Regular Rhythm and Murmur
GI: Soft, Non Tender and Non Distended. Positive bowel sounds.
Musculoskeletal: No Cyanosis, Edema, Left Lower Extremity and Edema, Right Lower Extremity
Skin: Warm and Dry
Neuro: Awake, Alert, Oriented and AO x 3
Psych: Calm
Assessment/Plan
80-year-old woman with history of:
colon cancer status post resection/chemotherapy currently in remission,
essential hypertension,
hyperlipidemia
presented to the emergency department with abdominal pain. She stated that she had been having intermittent abdominal pain, epigastric and sometimes periumbilical, associated with nausea, not exertional or associated with diaphoresis. She denied
having any urinary symptoms or any changes in her bowel movement. Her last colonoscopy was in 2023, according to her. She has had normal PET scans this year. She denied any chest pain or difficulty breathing. She denied any vomiting. She did talk to
her surgeons who told her to come to the emergency department for further evaluation. In the ER, the CT Abdomen/Pelvis showed (as per radiologist's report):
At least three possible foreign small low-attenuation hepatic lesions, difficult to differentiate malignancy such as metastatic disease versus benign etiology such as hemangiomas on the basis of this study. Are there prior outside studies for
comparison?
Prior colonic surgery with anastomosis seen in the left anterior lower abdomen, presumably ileocolic anastomosis with foreshortening large and small bowel and mildly dilated small bowel with air-fluid levels SUGGESTING PARTIAL OBSTRUCTION, POSSIBLY
AT SITE OF ANASTOMOSIS. No findings to confirm intestinal pneumatosis.
Distal colonic diverticulosis.
Small volume ascites.
Small right renal cyst.
Large hiatal/diaphragmatic stomach with majority of stomach seen in the medial right lower chest.
ADDENDED REPORT:
Following further reformatted views of the study just completed, small bowel obstruction may be multifocal and most prominent at the level of the right true pelvis coronal images 24-26, series 202.
#Partial SBO in setting of complex anatomy given prior surgery in setting of colon cancer
Diet advanced to Low Residue diet on 03/16/25 -- patient is tolerating it well
IV fluids were given
Consulted general surgery
#Hepatic Lesions on CT
#History of colon cancer
-Oncology evaluation inpatient vs. outpatient
#Atrial Fibrillation
-Started Heparin Drip on 03/13/25, to be given in lieu of patient's Eliquis for stroke prevention --> once patient has evidence of reliable oral intake, will switch back to oral anticoagulation
-Have asked pharmacist to look into converting her home medications to intravenous especially the Digoxin --> Digoxin converted to IV
-Transitioned back to oral medications today given patient is tolerating low residue diet
-Monitor on telemetry
#Pauses on telemetry
-Less than 3 seconds, and patient denied any symptoms e.g. no dizziness, chest pain, SOB etc
-I communicated with on-call tuber helper and discussed patient's pauses in setting of her Digoxin and Beta [place] and they said nothing to do inpatient
-Patient advised to get a media monitor with Dr. Hernandez (tuber helper)
#Bilateral Lower Extremity Edema
-Patient takes Lasix at home -- hold here due to soft blood pressures -- resume after reviewing with PCP
-Patient denied having any history of CHF
Full code
Eliquis for DVT prophylaxis
More than 30 minutes spent in discharge including
Final examination of the patient
Summarizing hospital stay
Instructions for continuing care to all relevant caregivers
Preparation of discharge records, prescriptions, and referral forms
Total time spent (in minutes): 41
Anticipated Discharge: Today
Subjective/Interval History
-
Date of Service: March 16, 2025
Patient was seen and examined. She reported feeling well and denied any new significant symptoms or complaints.
Objective Data
-
Vital Signs:
Vital Signs
Temp Pulse Resp BP Pulse Ox
97.4 F 63 16 118/58 95
03/16/25 03:00 03/16/25 03:00 03/16/25 03:00 03/16/25 03:00 03/16/25 03:00
I&O
03/15/25 03/16/25 03/17/25
06:59 06:59 06:59
Intake Total 1962 960 / 960
Balance 1962 960 / 960
--- NOTE | 2025-03-16 07:36 | W.PN.SURGUPD ---
Surgical Update
Surgical Update
No complaints. Tolerating a low residue diet. Passing flatus and had a loose stool yesterday. No recurrent abdominal crampy pain. Ambulating. Voiding.
Patient is an 80 yo F p/w pSBO likely related to adhesions
AVSS
Labs notable for normal WBC, normal electrolytes and renal function
Clinical improvement. Tolerating LRD. Dietary education provided. All questions answered.
-- LRD
-- OK to resume Eliquis
-- Pain control: Tylenol and Toradol
-- OOB/ambulate
[2025-03-16 07:49] VITALS: BP 127/82
[2025-03-16] MEDS: LANOXIN 125 MCG PO (08:30)
[2025-03-16] MEDS: TOPROL XL 25 MG PO (08:30)
[2025-03-16] MEDS: VISBIOME 1 CAP PO (08:31)
[2025-03-16] MEDS: VITAMIN C 500 MG PO (08:31)
[2025-03-16] MEDS: COZAAR 100 MG PO (08:31)
[2025-03-16] MEDS: ELIQUIS 5 MG PO (08:31)
[2025-03-16] MEDS: VITAMIN D3 (cholecalciferol) 25 MCG PO (08:31)
[2025-03-16] MEDS: LASIX 40 MG PO (08:31)
[2025-03-16] MEDS: PROTONIX 40 MG PO (08:31)
[2025-03-16] MEDS: VITAMIN B-12 1000 MCG PO (08:32)
[2025-03-16] MEDS: NSS (PRESERVATIVE FREE) IV (08:32)
[2025-03-16 11:20] VITALS: BP 136/75
--- NOTE | 2025-03-16 15:22 | CM ---
Discharge order noted.
Pt is aware, expressed her agreement and she stated her daughter will transport home.
IMM reviewed, placed on chart, pt has a copy.
No after care VN needs identified.
D/C plan: home no needs. Daughter to transport.
[2025-03-16 15:23] VITALS: BP 102/69
== END 2025-03-16 15:41 | disposition home or self-care (01) | DRG 389 ==
LOC: 2 SOUTH 20:35
PROVIDERS: ADMITTING PHYSICIAN Internal Medicine; ATTENDING PHYSICIAN Hospitalist; CONSULT PHYSICIAN Surgery; EMERGENCY PHYSICIAN Student in an Organized Health Care Education/Training Program; FAMILY PHYSICIAN Nurse Practitioner Family
DX: K56.600 Partial intestinal obstruction, unspecified as to cause (principal); R18.8 Other ascites; Z85.038 Personal history of other malignant neoplasm of large intestine; K57.30 Diverticulosis of large intestine without perforation or abscess without bleeding; N28.1 Cyst of kidney, acquired; I10 Essential (primary) hypertension; E78.5 Hyperlipidemia, unspecified; K21.9 Gastro-esophageal reflux disease without esophagitis; Z79.01 Long term (current) use of anticoagulants; Z79.899 Other long term (current) drug therapy
CPT/HCPCS: 74177; 80048; 80053; 83690; 83735; 85025; 85027; 85730; 93005; 96365; 96366; 99285; J1160; Q9967